=== PATIENT | male | born 1970 | race Caucasian/White ===

== ENCOUNTER 2017-05-31 16:56 | Inpatient (IN) | payer OTHER ==
[~2017-05-31] VITALS: Ht 165.1 cm; Wt 104.3 kg
[2017-06-08] MEDS ORDERED: PERCOCET 5-3251 EACH PO (13:07)
== END 2017-06-08 19:16 | DRG 330 ==
LOC: ER 16:56 → SEC-K 18:14 → SURG 18:14
PROVIDERS: Surgery
PROC: BW3GZZZ Magnetic Resonance Imaging (MRI) of Pelvic Region (ICD-10-PCS; 2017-06-01)
PROC: BW3GY0Z Magnetic Resonance Imaging (MRI) of Pelvic Region using Other Contrast, Unenhanced and Enhanced (ICD-10-PCS; 2017-06-01)
PROC: 02HV33Z Insertion of Infusion Device into Superior Vena Cava, Percutaneous Approach (ICD-10-PCS; 2017-06-01)
PROC: 3E0336Z Introduction of Nutritional Substance into Peripheral Vein, Percutaneous Approach (ICD-10-PCS; 2017-06-01)
PROC: BW25Y0Z Computerized Tomography (CT Scan) of Chest, Abdomen and Pelvis using Other Contrast, Unenhanced and Enhanced (ICD-10-PCS; 2017-06-02)
PROC: 0D1L4Z4 Bypass Transverse Colon to Cutaneous, Percutaneous Endoscopic Approach (ICD-10-PCS; principal; 2017-06-05 13:00)
PROC: 05H633Z Insertion of Infusion Device into Left Subclavian Vein, Percutaneous Approach (ICD-10-PCS; 2017-06-08)
PROC: BV44ZZZ Ultrasonography of Scrotum (ICD-10-PCS; 2017-06-08)
DX: C20 Malignant neoplasm of rectum (principal); K62.5 Hemorrhage of anus and rectum; K56.699 Other intestinal obstruction unspecified as to partial versus complete obstruction; N13.8 Other obstructive and reflux uropathy; K59.09 Other constipation; N40.1 Benign prostatic hyperplasia with lower urinary tract symptoms
CPT/HCPCS: 72196